=== PATIENT | male | born 1955 | race Caucasian/White ===

== ENCOUNTER 2019-04-15 07:04 | Day surgery (SDC) | payer MEDICARE, OTHER ==
[~2019-04-15] VITALS: Ht 172.7 cm; Wt 104.5 kg
[~2019-04-15 07:04] MED LIST: SODIUM CHLORIDE 0.9% 1,000 ML IV ONE
[2019-04-15] MEDS ORDERED: ALBUTEROL SULFATE 2.5 MG/0.5 ML NEB SOLUTION NEB ONE (07:05)
[2019-04-15] MEDS ORDERED: BENZOCAINE 20% 50 MCG/SPRAY 57 GM TP ONE (07:05)
[2019-04-15] MEDS ORDERED: LIDOCAINE 2% 30 ML JELLY TP ONE (07:05)
[2019-04-15] MEDS ORDERED: LIDOCAINE 4% 50 ML SOLUTION TP ONE (07:05)
[2019-04-15] MEDS ORDERED: FentaNYL CITRATE-PF 100 MCG/2 ML VIAL ONE (07:45)
[2019-04-15] MEDS ORDERED: MIDAZOLAM HCL 2 MG/2 ML VIAL ONE (07:45)
[2019-04-15 07:56] LABS: GLUCOMETER DEV NAME(LOC) SDS.; GLUCOSE,POINT OF CARE 121 MG/DL (70-110)
[2019-04-15] MEDS ORDERED: MethylPREDNISolone SOD SUCC 125 MG/2 ML VIAL IVP ONE (09:00)
[2019-04-15] MEDS ORDERED: MethylPREDNISolone SOD SUCC 125 MG/2 ML VIAL ONE (09:03)
[2019-04-15] MEDS ORDERED: AMLO10TA7 PO (10:13)
[2019-04-15] MEDS ORDERED: METF-960 PO (10:13)
[2019-04-15] MEDS ORDERED: INSU100I26 SQ (10:13)
[2019-04-15] MEDS ORDERED: FAMO20 PO (10:14)
[2019-04-15] MEDS ORDERED: ASPI-1182 PO (10:14)
[2019-04-15] MEDS ORDERED: LISI-662 PO (10:14)
[2019-04-15] MEDS ORDERED: GABA-531 PO (10:14)
[2019-04-15] MEDS ORDERED: ACET500C4 PO (10:14)
[2019-04-15] MEDS ORDERED: ATOR40TA28 PO (10:14)
[2019-04-15] MEDS ORDERED: MONT10TA21 PO (10:14)
[2019-04-15] MEDS ORDERED: OXYGEN THERAPY IH SCH (20:00)
== END 2019-04-15 10:20 | disposition home or self-care (01) ==
LOC: SURGERY 07:04
PROVIDERS: ATTEND Internal Medicine Critical Care Medicine
DX: J38.4 Edema of larynx (principal); B37.0 Candidal stomatitis; J45.909 Unspecified asthma, uncomplicated; J98.8 Other specified respiratory disorders; I10 Essential (primary) hypertension; G47.33 Obstructive sleep apnea (adult) (pediatric); E11.9 Type 2 diabetes mellitus without complications; F17.210 Nicotine dependence, cigarettes, uncomplicated; Z79.899 Other long term (current) drug therapy; Z98.890 Other specified postprocedural states
CPT/HCPCS: 31623; 31624; 71045; 82962; 87015; 87070; 87101; 87205; 87206; 87220; 88108; 88312; J2250; J2930; J3010; J7030